=== PATIENT | female | born 1955 | race Caucasian/White ===

== ENCOUNTER 2016-11-01 07:30 | Emergency (ER) | payer BC, OTHER ==
[2016-11-01 07:39] VITALS: BP 107/69
[2016-11-01] MEDS ORDERED: CEPHALEXIN 250 MG CAPSULE PO STA (07:56)
--- NOTE | 2016-11-01 07:59 | ED Physician Documentation ---
PD HPI SKIN - Stated complaint Stated Complaint: SWELLING ON SHOULDER - Chief complaint Chief Complaint: General - History obtained from History obtained from: Patient - History of Present Illness Timing - onset: How many days ago (5) Timing - duration: Days (5) Timing - details: Still present Location: Back Quality / character: Itchy, Painful, Discolored, Raised, Swelling Contributing factors: Unknown Similar symptoms before: Has not had sx before - Additional information Additional information: The patient is a 60-year-old female who presents with swollen, tender area on her back over the left scapular region. She first noticed it 5 days ago, and it has persisted since that time. It is painful with fabric rubbing on it, and it is itchy. She thinks it is a bug bite, but is unaware of any specific bug bite or traumatic injury. [place] and had a mild sunburn which initially distracted her from the area of involvement. She denies history of similar symptoms in the past. She denies fever, sore throat, dyspnea, or nausea. Review of Systems Constitutional: denies: Fever Nose: denies: Congestion Throat: denies: Sore throat Respiratory: denies: Dyspnea GI: denies: Nausea Skin: reports: Bite / sting Musculoskeletal: denies: Extremity swelling Neurologic: denies: Headache PD PAST MEDICAL HISTORY - Past Medical History Cardiovascular: None Respiratory: None Endocrine/Autoimmune: None Musculoskeletal: Osteoporosis - Past Surgical History Past Surgical History: No - Present Medications Home Medications: Ambulatory Orders Medication Instructions Recorded Confirmed Cephalexin 500 mg PO TID #20 tablet 11/01/16 Estradiol/Norethindrone Acet 1 tab PO DAILY 11/01/16 11/01/16 [Activella 0.5-0.1 mg Tablet] Osteporosis Pill 11/01/16 Tolterodine Tartrate [Detrol] 1 mg PO DAILY 11/01/16 11/01/16 - Allergies Allergies/Adverse Reactions: Allergies Allergy/AdvReac Type Severity Reaction Status Date / Time No Known Drug Allergies Allergy Verified 11/01/16 07:39 - Social History Does the pt smoke?: Yes Smoking Status: Current every day smoker Does the pt drink ETOH?: Yes Does the pt have substance abuse?: No Substance Use and Type: Marijuana - Immunizations Immunizations are current?: Yes PD ED PE NORMAL - Vitals Vital signs reviewed: Yes (Normal) - General General: Alert and oriented X 3, Well developed/nourished - HEENT HEENT: Atraumatic, Pharynx benign - Neck Neck: No bony TTP - Respiratory Respiratory: No respiratory distress - Derm Derm: No rash, Other (There is a 2 cm diameter area of mild erythema and swelling over the left scapular region of the back. It is tender to palpation, and feels slightly indurated. There is a central dark spot, consistent with a potential spider bite. There is no fluctuance.) - Extremities Extremities: No tenderness to palpate, No edema - Neuro Neuro: Alert and oriented X 3, No motor deficit, No sensory deficit, Normal speech Results - Vitals Vitals: Vital Signs - 24 hr 11/01/16 07:35 Temperature 37.1 C Heart Rate 69 Respiratory 15 Rate Blood Pressure 107/69 O2 Saturation 98 Oxygen O2 Source Room air PD MEDICAL DECISION MAKING - ED course Complexity details: considered differential, d/w patient ED course: The patient's presentation is most consistent with spider bite or other type of bug bite, with a localized cellulitis. There is clinically no sign of abscess. Treatment in the emergency department included administration of cephalexin 500 mg orally. She is being discharged with a prescription for cephalexin. I discussed with her the expected course of illness, antibiotic treatment, as well as potentially worrisome signs or symptoms that should prompt reevaluation in the emergency department. Departure - Departure Disposition: 01 Home, Self Care Clinical Impression: Bug bite Qualifiers: Encounter type: initial encounter Qualified Code(s): W57.XXXA - Bitten or stung by nonvenomous insect and other nonvenomous arthropods, initial encounter Cellulitis Qualifiers: Site of cellulitis: trunk Site of cellulitis of trunk: back Qualified Code(s): L03.312 - Cellulitis of back [any part except buttock] Condition: Stable Instructions: ED Infec Skin Cellulitis Prescriptions: Cephalexin 500 mg PO TID #20 tablet Comments: 1. Take cephalexin 3 times daily as prescribed. 2. You can use ibuprofen, up to 600 mg 3 times daily for its anti-inflammatory effect. 3. You can use calamine lotion on the site to help with itching. 4. Follow-up with your primary physician, or return to the emergency department , if you develop increasing redness, swelling, pain, or otherwise worsening symptoms.
[2016-11-01] MEDS ORDERED: CEPHALEXIN 250 MG CAPSULE PO ONE (08:02)
== END 2016-11-01 08:10 | disposition home or self-care (01) ==
LOC: ED 07:30
DX: L03.312 Cellulitis of back [any part except buttock and flank] (principal); S40.262A Insect bite (nonvenomous) of left shoulder, initial encounter; W57.XXXA Bitten or stung by nonvenomous insect and other nonvenomous arthropods, initial encounter
CPT/HCPCS: 99283; A9270